=== PATIENT | female | born 1995 | race Asian ===

== ENCOUNTER 2020-05-18 10:43 | Emergency (ER) | payer MEDICAID, OTHER ==
[~2020-05-18] VITALS: Ht 149.9 cm; Wt 54.4 kg
[2020-05-18 11:42] VITALS: BP 115/65
[2020-05-18] MEDS ORDERED: METHOCARBAMOL 500 MG TAB PO ONE (12:30)
[2020-05-18] MEDS ORDERED: IBUPROFEN 800 MG TAB PO ONE (12:30)
== END 2020-05-18 13:35 | disposition home or self-care (01) ==
LOC: ER 10:43
DX: M54.2 Cervicalgia (principal); M54.6 Pain in thoracic spine; V49.9XXD Car occupant (driver) (passenger) injured in unspecified traffic accident, subsequent encounter
CPT/HCPCS: 72040; 72070; 72110

== ENCOUNTER 2020-05-31 09:58 | Emergency (ER) | payer BC, MEDICAID ==
[~2020-05-31] VITALS: Ht 149.9 cm; Wt 56.7 kg
[2020-05-31 10:03] VITALS: BP 102/74
== END 2020-05-31 10:36 | disposition home or self-care (01) ==
LOC: ER 09:58
DX: S01.01XD Laceration without foreign body of scalp, subsequent encounter (principal); F17.210 Nicotine dependence, cigarettes, uncomplicated; X58.XXXD Exposure to other specified factors, subsequent encounter

== ENCOUNTER 2024-08-25 10:59 | Inpatient (IN) | payer BC, MEDICAID ==
[~2024-08-25] VITALS: Ht 152.4 cm; Wt 56.0 kg
--- NOTE | 2024-08-25 11:09 | ED.PDOC ---
History of Present Illness HPI Comments 39 year old female presents to the ED via EMS with a chief complaint of overdose. Per EMS, patient states she has been experiencing increased stress, unable to sleep. She took 4 Tylenol PM, 2 NyQuil PM, 3 Benadryl as well as alcohol. Patient states she is currently experiencing anxiety, has no further complaints. Denies any PMHx as well as dizziness, nausea, vomting, diarrhea, chest pain, shortness of breath, fever, chills, suicidal ideation, homicidal ideation. No other symptoms or modifying factors present at this time. Time Seen by MD: 11:02 Primary Care Provider: SON Reviewed Notes: Medications, Allergies Allergies: Coded Allergies: NO KNOWN ALLERGIES (Unverified , 05/18/20) Information Source: Patient, Emergency Med Personnel Mode of Arrival: EMS Severity: Moderate Timing: Hours Duration: Since onset Prehospital treatment: None Past Medical History PAST MEDICAL HISTORY: Denies Surgical History: Denies all surgeries CITIZEN PARTICIPATION SPECIALIST History: No Pertinent CITIZEN PARTICIPATION SPECIALIST History Family History Family History: Reviewed,noncontributory to illness Social History Smoker: Cigarettes Alcohol: Heavy Drugs: Marijuana Lives In: Home Constitutional: denies: chills, diaphoresis, fatigue, fever, malaise, sweats, weakness, others EENTM: denies: blurred vision, double vision, ear bleeding, ear discharge, ear drainage, ear pain, ear ringing, eye pain, eye redness, hearing loss, mouth pain, mouth swelling, nasal discharge, nose bleeding, nose congestion, nose pain, photophobia, tearing, throat pain, throat swelling, voice changes, others Respiratory: denies: cough, hemoptysis, orthopnea, SOB at rest, shortness of breath, SOB with excertion, stridor, wheezing, others Cardiovascular: denies: chest pain, dizzy spells, diaphoresis, Dyspnea on exertion, edema, irregular heart beat, left arm pain, lightheadedness, palpitations, PND, syncope, others Gastrointestinal: denies: abdomen distended, abdominal pain, blood streaked bowels, constipated, diarrhea, dysphagia, difficulty swallowing, hematemesis, melena, nausea, poor appetite, poor fluid intake, rectal bleeding, rectal pain, vomiting, others Genitourinary: denies: abnormal vagina bleeding, burning, dyspareunia, dysuria, flank pain, frequency, hematuria, incontinence, pain, , vagina discharge, urgency, others Neurological: denies: dizziness, fainting, headache, left sided numbness, left sided weakness, numbness, paresthesia, pre-existing deficit, right sided numbness, right sided weakness, seizure, speech problems, tingling, tremors, weakness, others Musculoskeletal: denies: back pain, gout, joint pain, joint swelling, muscle pain, muscle stiffness, neck pain, others Integumetry: denies: bruises, change in color, change in hair/nails, dryness, laceration, lesions, lumps, rash, wounds, others Allergic/Immunocompromised: denies: Difficulty Healing, Frequent Infections, Hives, Itching, others Hematologic/Lymphatic: denies: anemia, blood clots, easy bleeding, easy bruising, swollen glands, others Endocrine: denies: excessive hunger, excessive sweating, excessive thirst, excessive urination, flushing, intolerance to cold, intolerance to heat, unexplained weight gain, unexplained weight loss, others Psychiatric: reports: anxiety; denies: bipolar disorder, depression, hopeless, panic disorder, schizophrenia, sleepless, suicidal, others All Other Systems: Reviewed and Negative Physical Exam General Appearance: Moderate Distress, Normal HEENT: Normal ENT Inspection, Pharynx Normal, TMs Normal Neck: Full Range of Motion, Non-Tender, Normal, Normal Inspection Respiratory: Chest Non-Tender, Lungs Clear, No Accessory Muscle Use, No Respiratory Distress, Normal Breath Sounds Cardiovascular: No Edema, No JVD, No Murmur, No Gallop, Normal Peripheral Pulses, Regular Rate/Rhythm Breast Exam: Deferred Gastrointestinal: No Organomegaly, Non Tender, No Pulsatile Mass, Normal Bowel Sounds, Soft Genitalia: Deferred Pelvic: Deferred Rectal: Deferred Extremities: No calf tenderness, Normal capillary refill, Normal inspection, Normal range of motion, Non-tender, No pedal edema Musculoskeletal : Apperance: Normal Neurologic: Alert, 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 Was a procedure done?: No Differential Dx Considerations may include: Drug use alcohol abuse X-Ray, Labs, Meds, VS Vital Signs Date Time Temp Pulse Resp B/P (MAP) Pulse Ox O2 Delivery O2 Flow Rate FiO2 08/25/24 12:38 95 22 133/91 (105) 96 08/25/24 12:38 95 22 96 Room Air 08/25/24 12:36 103 19 99 Room Air* 0 21 08/25/24 12:36 99.1 103 19 133/91 (105) 99 99.1 08/25/24 11:15 97 08/25/24 11:08 99.0 113 24 137/89 (105) 99 99.0 Lab Test 08/25/24 12:07 08/25/24 11:48 Range/Units Urine Color Pending Urine Clarity Pending Urine pH Pending Urine Specific [place] Pending Urine Protein Pending Urine Ketones Pending Urine Blood Pending Urine Nitrite Pending Urine Bilirubin Pending Urine Urobilinogen Pending Urine Leukocyte Esterase Pending Urine RBC Pending Urine Microscopic WBC Pending Urine Squamous Epithelial Cells Pending Urine Bacteria Pending Urine Glucose Pending Urine Opiates Screen Pending Urine Fentanyl Screen Pending Urine Barbiturates Screen Pending Urine Phencyclidine Screen Pending Urine Amphetamines Screen Pending Urine Benzodiazepines Screen Pending Urine Cocaine Screen Pending Urine Cannabinoids Screen Pending Sodium Level 136 136-145 mmol/L Potassium Level 3.8 3.5-5.1 mmol/L Chloride Level 100 98-107 mmol/L Carbon Dioxide Level 21 20-31 mmol/L Anion Gap 15 5-15 Blood Urea Nitrogen < 5 L 9-23 mg/dL Creatinine 0.67 0.550-1.02 mg/dL Glomerular Filtration Rate Calc 115 >90 mL/min BUN/Creatinine Ratio 7.5 L 10.0-20.0 Serum Glucose 89 74-106 mg/dL Calcium Level 10.2 8.7-10.4 mg/dL Total Bilirubin 1.2 H 0.2-1.0 mg/dL Aspartate Amino Transferase (AST) 162 H 13-40 U/L Alanine Aminotransferase (ALT) 59 H 7-40 U/L Alkaline Phosphatase 108 46-116 U/L Total Protein 8.2 5.7-8.2 g/dL Albumin 5.0 H 3.2-4.8 g/dL Salicylates Level < 3.0 -30 mg/dL Acetaminophen Level < 2.0 L 10.0-20.0 UG/ML Plasma/Serum Blood Alcohol Pending Current Medications Medications (Trade) Dose Ordered Sig/Filomena Route Start Time Stop Time Status Last Admin Sodium Chloride 1,000 ml @ 1,000 mls/hr Q1H ONCE IV 08/25/24 11:30 08/25/24 12:29 DC 08/25/24 12:51 Thiamine HCl 100 mg ONCE ONCE IV 08/25/24 11:30 08/25/24 11:31 DC 08/25/24 12:52 Methylprednisolone Sodium Succinate (Solu Medrol) 125 mg ONCE ONCE IV 08/25/24 12:45 08/25/24 12:46 DC 08/25/24 12:56 Famotidine (Pepcid Injection) 40 mg ONCE ONCE IV 08/25/24 12:45 08/25/24 12:46 DC 08/25/24 12:56 Patient alert. Has taken multiple drugs to rest. Has been drinking daily. Vitals stable. Establish intravenous access. Was given fluids. Was given thiamine. Denies suicidal or homicidal ideation. Reviewed her history. Counseled patient on effects of drinking for 15 minutes. Continue monitoring. Patient has started to have swelling of her lips. Possible allergic reaction. Was given steroid. Was given Pepcid. Explained to the patient. Time of 1ST Reevaluation: 11:32 Reevaluation 1ST: Unchanged Patient Education/Counseling: Diagnosis, Treatment, Prognosis Family Education/Counseling: No Family Present Additional Information The following tests were ordered, and results were reviewed by me: DRUG SCREEN, BLOOD ALCOHOL, UA, EKG, ACETAMINOPHEN, CMP, URINE ETOH, SALICYLATE Additional Information was gathered from interviewing the following independent historians: EMS I discussed treatment and results with medical personnel and: Patient Comprehensive systems review obtained and negative except for what is stated in the HPI. Departure 1 Departure Time of Disposition: 11:25 Impression: Primary Impression: Alcohol abuse Additional Impression: Allergic reaction Qualified Codes: T78.40XA - Allergy, unspecified, initial encounter Disposition: ADMITTED INPATIENT Admit to: Med Surg Condition: Guarded Critical Care Note Critical Care Time?: No Stability Stability form required: No Heart Score Heart Score: Heart Score Response (Comments) Value History N/A 0 EKG N/A 0 Age N/A 0 Risk Factors N/A 0 Troponin N/A 0 Total 0 I personally scribed for UMANG SANDOVAL MD ([email or web address]) on 08/25/24 at 11:09. Electronically submitted by Opal Coronel ([email or web address]). I personally scribed for UMANG SANDOVAL MD ([email or web address]) on 08/25/24 at 12:05. Electronically submitted by Opal Coronel ([email or web address]). UMANG SANDOVAL MD Aug 25, 2024 11:09
[2024-08-25 12:36] VITALS: PULSE 103; RESP 19; O2SAT 99
[2024-08-25 12:42] LABS: Alkaline Phosphatase 108 U/L (46-116); Anion Gap 15 (5-15); Calcium 10.2 mg/dL (8.7-10.4); Carbon Dioxide 21 mmol/L (20-31); Chloride 100 mmol/L (98-107); Glucose 89 mg/dL (74-106); Potassium 3.8 mmol/L (3.5-5.1)
[2024-08-25 12:43] LABS: Salicylate < 3.0 mg/dL (-30)
[2024-08-25 12:44] LABS: Acetaminophen < 2.0 UG/ML (10.0-20.0)
[2024-08-25 12:45] LABS: Alanine Aminotransferase 59 U/L (7-40); Aspartate Aminotransferase 162 U/L (13-40); BUN/Creatinine Ratio 7.5 (10.0-20.0); Bilirubin, Total 1.2 mg/dL (0.2-1.0); Blood Urea Nitrogen < 5 mg/dL (9-23); Sodium 136 mmol/L (136-145); Total Protein 8.2 g/dL (5.7-8.2)
[2024-08-25] MEDS: SODIUM CHLORIDE 0.9% 1,000 ML IV ONE ×2 (12:51→17:37)
[2024-08-25] MEDS: THIAMINE 100mg/ml INJ (200mg/2ml VIAL) IV ONE (12:52)
[2024-08-25] MEDS: methylPREDNISolone SOD SUCC 125 MG/2 ML VL IV ONE (12:56)
[2024-08-25] MEDS: FAMOTIDINE (10MG/ML) 2ML VL IV ONE (12:56)
[2024-08-25 14:31] LABS: Benzodiazephine Screen, Urine Neg (NEGATIVE); Cannabinoid Screen, Urine Neg (NEGATIVE); Opiate Scree,Urine Neg (NEGATIVE); Phencyclidine Screen, Urine Neg (NEGATIVE)
[2024-08-25 14:33] LABS: Urine Bacteria FEW /hpf (None Seen); Urine Blood Negative /uL (Negative); Urine Clarity Turbid (Clear); Urine Color Light-Orange (Yellow); Urine Mucus FEW (None Seen); Urine Protein, UAD TRACE (Negative); Urine Specific Gravity 1.019 (1.001-1.035); Urine Squamous Epithelial Cell MOD /hpf (<5); Urine Urobilinogen 2 mg/dL (Negative); Urine WBC 19 /HPF (0-5)
[2024-08-25 14:35] LABS: Amphetamine Screen, Urine Pos (NEGATIVE); Barbiturate Scree,Urine Neg (NEGATIVE); Cocaine Screen, Urine Pos (NEGATIVE)
[2024-08-25] MEDS: ACETYLCYSTEINE IV ONE (16:52)
[2024-08-25] MEDS: D5W 5% IV ONE (16:52)
[2024-08-25 16:59] LABS: Basophils # (auto) 0 10 ^3/uL (0-0.2); Basophils % (auto) 0.6 % (0.0-2.0); Eosinophils # (auto) 0.4 10 ^3/uL (0-0.8); Eosinophils % (auto) 5.2 % (0.0-7.0); Hematocrit 41.5 % (36.0-46.0); Hemoglobin 14.2 g/dL (12.2-16.2); Lymphocytes # (auto) 1.2 10 ^3/uL (0.4-5.4); Lymphocytes % (auto) 15.2 % (10.0-50.0); Mean Corpuscular Hemoglobin 32.1 pg (28.0-32.0); Mean Corpuscular Hgb Conc. 34.1 g/dL (32.0-36.0); Mean Corpuscular Volume 94.1 fL (80.0-100.0); Monocytes # (auto) 0.5 10 ^3/uL (0-1.3); Monocytes % (auto) 6.9 % (0.0-12.0); Neutrophils # (auto) 5.6 10 ^3/uL (1.6-8.6); Neutrophils % (auto) 72.1 % (37.0-80.0); Nucleated Red Blood Cells % 0.1 %; Platelet Count (auto) 294 10^3/uL (140-450); Red Blood Cells 4.42 10^6/uL (4.0-5.20); Red Cell Distribution Width 14.6 % (11.8-14.3); White Blood Cell 7.7 10^3/uL (4.4-10.8)
[2024-08-25] MEDS ORDERED: hydrOXYzine 25 MG TAB or CAP PO PRN (17:00)
[2024-08-25] MEDS ORDERED: LORazepam 2MG/ML-1ML VIAL IV PRN (17:00)
[2024-08-25] MEDS ORDERED: methylPREDNISolone SOD SUCC 125 MG/2 ML VL IV PRN (17:00)
[2024-08-25] MEDS ORDERED: FAMOTIDINE (10MG/ML) 2ML VL IV PRN (17:00)
[2024-08-25] MEDS ORDERED: diphenhdrAMINE HCL 50 MG/1 ML VL IV PRN (17:00)
[2024-08-25] MEDS ORDERED: DOCUSATE SOD 100 MG CAP PO PRN (17:30)
[2024-08-25] MEDS ORDERED: IBUPROFEN 600 MG TAB PO PRN (17:30)
[2024-08-25] MEDS: cefTRIAXone 1GM/50ML D5W 50 ML IV SCH (17:37)
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
[2024-08-25] MEDS: MORPHINE SULFATE INJ 2 MG/ml SYRG IV PRN (17:54)
[2024-08-25 19:30] VITALS: BP 137/87; TEMP 98.4
[2024-08-25 19:41] LABS: Alanine Aminotransferase 57 U/L (7-40); Aspartate Aminotransferase 125 U/L (13-40)
[2024-08-25] MEDS: D5W 5% IV SCH (21:15)
[2024-08-25] MEDS: ACETYLCYSTEINE IV SCH (21:15)
[2024-08-25 21:47] VITALS: PULSE 103; RESP 19; O2SAT 99
[2024-08-25] MEDS ORDERED: SODIUM CHLOR 0.9% PF (SALINE LOCK) 10ML VIAL/SYR IV SCH (22:00)
--- NOTE | 2024-08-25 23:45 | ECG ---
[facility] [place] Test Date: 2024-08-25 Test Time: 11:15:19 Pat Name: SHARON ZARATE Department: ED Room: [address] [place] [address] Gender: F Torpedo Man: [email or web address] : 1985-04-23 Requested By: UMANG SANDOVAL Order Number: [id number] Reading MD: Measurements Intervals [place] Rate: 97 P: 67 AL: 128 QRS: 57 QRSD: 80 T: 43 QT: 354 QTc: 450 Interpretive Statements Sinus rhythm Low voltage, precordial leads Borderline T abnormalities, anterior leads Baseline wander in lead(s) V6 Please click the below link to view image of tracing.
[2024-08-26] MEDS ORDERED: ENOXAPARIN SOD 40 MG/0.4 ML SYRINGE SC SCH (10:00)
== END 2024-08-25 21:14 | disposition left against medical advice (07) | DRG 812 ==
LOC: ER 10:59 → EDBD 10:59 → OVERFLOW 17:26
PROVIDERS: ADMIT Internal Medicine; ATTEND Internal Medicine
DX: T39.1X1A Poisoning by 4-Aminophenol derivatives, accidental (unintentional), initial encounter (principal); F10.10 Alcohol abuse, uncomplicated; F41.9 Anxiety disorder, unspecified; N39.0 Urinary tract infection, site not specified; T78.49XA Other allergy, initial encounter; X58.XXXA Exposure to other specified factors, initial encounter; Z53.29 Procedure and treatment not carried out because of patient's decision for other reasons; F17.210 Nicotine dependence, cigarettes, uncomplicated; F12.90 Cannabis use, unspecified, uncomplicated; Y90.9 Presence of alcohol in blood, level not specified; Y92.89 Other specified places as the place of occurrence of the external cause
CPT/HCPCS: 36415; 80053; 80307; 80320; 80329; 81001; 84450; 84460; 85025; 87086; 93005; 96361; 96374; 96375; G0378; J3490; J7060